=== PATIENT | female | born 1995 | race Caucasian/White ===

== ENCOUNTER 2022-11-29 22:20 | Outpatient (CLI) | payer OTHER, SELFPAY ==
[2022-11-29 22:47] VITALS: BP 139/71; PULSE 82
[2022-11-29 23:08] LABS: Amnisure Rom* Negative
[2022-11-29 23:28] VITALS: BP 123/69; PULSE 85
--- NOTE | 2022-11-29 23:33 | PC.OBNST ---
NST Note NST Note Start: 11/29/22 22:17 Freq: ONCE Status: Active Protocol: Document 11/29/22 23:31 [facility] (Rec: 11/29/22 23:32 [facility] [id number]) NST Note 1 Para (# of births) 0 EDC 12/06/22 Gestational Age In Weeks & Days 39 Weeks & 0 Days Patient Presented with Complaint(s) of Leaking fluid Reactive Yes Appropriate for Gestational Age Yes FADY Maurer RN Date 11/29/22 Reactive Yes Appropriate for Gestational Age Yes FADY Perez, RN Date 11/29/22 OB NST charge Yes Complete NST Note via Write Note Yes The provider's electronic signature indicates the NST is reactive/appropriate for gestational age. *Note to provider: If an addendum is required, open the patient's chart and click on the note under the Nurse/Allied Health tab.
== END 2022-11-29 23:40 | disposition home or self-care (01) ==
LOC: OB OUT 22:21 → OB 22:22
PROVIDERS: PCP Family Medicine; Visit Provider Family Medicine
DX: O47.1 False labor at or after 37 completed weeks of gestation (principal); Z3A.39 39 weeks gestation of pregnancy
CPT/HCPCS: 59025; 84112; 99213

== ENCOUNTER 2022-12-09 04:48 | Inpatient (IN) | payer OTHER, SELFPAY ==
[2022-12-09] VITALS (60 sets, daily range): BP systolic 106–151; BP diastolic 55–93; PULSE 61–118; RESP 16–18; TEMP 36.6–37; O2SAT 80–100; BMI 45.1
[2022-12-09] MEDS: LACTATED RINGERS 1000 ML 1,000 ML 999 ML IV ×3 (08:45→15:23)
[2022-12-09] MEDS: ROPIVACAINE 0.2% 100 ml 100 ML 12 MG EPIDURAL (09:31)
--- NOTE | 2022-12-09 09:40 | P.ANBPRC_ITS ---
[facility] Medical History (Updated 10/29/22 @ 11:19 by Yola Sheriff CRNA) BMI 38.0-38.9,adult ?Z68.38 - Body mass index [BMI] 38.0-38.9, adult (ICD-10) Social History What is your current living situation?: I presently have a place to live Problems where you live: no known problems In the past 12 months, utilities in danger of being shut off: no In the past 12 mos, have been you worried that your food would run out before you had money to buy more?: never true In the past 12 mos, the food you bought just didn't last and you didn't have money to buy more?: never true Smoking Status: Former smoker How often does anyone, including family, friends and others, physically hurt you : never How often does anyone, including family, friends and others, insult or talk down to you: never How often does anyone, including family, friends and others, threaten you with harm: never How often does anyone, including family, friends and others, scream or curse at you: never Meds Home Medications and Allergies Home Medications Medication Instructions Recorded Confirmed Type vitamin with calcium 1 tab PO DAILY 10/12/22 12/09/22 History no.72-iron 27 mg-folic acid 1 mg tablet ( Vitamins Plus Low Iron) Allergies Allergy/AdvReac Type Severity Reaction Status Date / Time No Known Drug Allergies Allergy Verified 12/09/22 04:31 Results Vital Signs Vital Signs: Last Vital Signs Temp 98.1 F 12/09/22 07:15 Pulse 86 12/09/22 09:39 Resp 16 12/09/22 07:15 BP 127/62 12/09/22 09:39 Pulse Ox 98 12/09/22 09:36 Weight: 126.824 kg Height: 167.64 cm Anesthesia Procedures Epidural Insertion Patient Location: OB Reason for Block: procedure for pain Patient Position: sitting Performed By: Gabriel Spencer Preanesthetic Checklist: IV checked, risks and benefits discussed, surgical consent, monitors and equipment checked, pre-op evaluation, timeout performed and anesthesia consent Prep: chlorhexidine gluconate Monitoring: blood pressure monitoring, continuous pulse oximetry and heart rate Approach: midline Vertebral Space: lumbar (1-5) Epidural Technique: RAMIRO saline Needle Type: Tuohy needle Injection Technique: continuous catheter Needle gauge: 17 Needle Length (cm): 10 cm Needle Insertion Depth (cm): 8 Catheter Gauge: 19 Catheter Type: multi-orifice Catheter at skin depth (cm): 13 Test Dose Result: negative and lidocaine 1.5% with epinephrine 1 to 200,000
[2022-12-09] MEDS: OXYTOCIN 30 unit/500 ML in NS 30 UNIT/500 ML BAG IVPB (10:41)
[2022-12-09 10:43] LABS: Basophils Percent Auto 0.2 % (0.0-3.0); Eosinophils Percent Auto 0.3 % (0.0-7.0); Hematocrit 34.9 % (33.0-51.0); Hemoglobin* 11.8 gm/dL (12.0-16.0); Immature Granulocytes Pct Auto 0.6 %; Lymphocytes Percent Auto 10.5 % (20-44); Mean Corpuscular HGB Conc 34 gm/dL (32-36); Mean Corpuscular Hemoglobin 28 pg (26-34); Mean Corpuscular Volume 83 fL (80-100); Monocytes Percent Auto 5.1 % (0.0-11.0); Neutrophils Percent Auto 83.3 % (42.0-72.0); Platelet Count* 224 K/uL (140-440); Red Blood Count 4.19 m/uL (4.00-5.20); White Blood Count* 12.65 K/uL (4.50-11.00)
[2022-12-09 10:45] LABS: Slide Review Reflex No
--- NOTE | 2022-12-09 13:49 | P.OBHP_ITS ---
OB - H&P: HPI Labor/Induction History of Present Illness Date Seen: 12/09/22 Chief Complaint: The patient is a 27 year old 1 para 0 at 40+3 weeks gestation by LMP and confirmed with 1st trimester US, who presents with regular contractions. Chief complaint: maternity : 1 Para: 0 Narrative: Irving Ross is a 27 year old at 40+3 weeks by LMP and confirmed with first trimester US here in active labor. Irving started alba last evening, however by 0230, these became stronger and more regular and she presented to labor in delivery at 4 cm dilated. Since then, she has received an epidural for pain control. Her contractions then spaced out between 7-9 minutes and pitocin was started. She had SROM of a small amount of clear fluid at 1327. complicated by obesity, has had level 2 US and has had weekly BPPs since 32 weeks, all have been reassuring. 34 week growth is 86%, 2903g. History of Present Dating criteria: based on LMP care: good care Ultrasounds: normal 1st trimester US and normal mid trimester US Medical complications: none Labs Blood type: 0 (-) negative Rubella: immune RPR/VDLR: nonreactive GBS status: negative HBsAG: negative Review of Systems Status of ROS: Reports: 6 or more systems reviewed and unremarkable except as noted in History and below Meds Home Medications and Allergies Home Medications Medication Instructions Recorded Confirmed Type vitamin with calcium 1 tab PO DAILY 10/12/22 12/09/22 History no.72-iron 27 mg-folic acid 1 mg tablet ( Vitamins Plus Low Iron) Allergies Allergy/AdvReac Type Severity Reaction Status Date / Time No Known Drug Allergies Allergy Verified 12/09/22 04:31 OB - H&P: Exam Physical Exam: Vital signs: Temp Pulse Resp BP Pulse Ox 98.6 F 68 16 110/59 L 99 12/09/22 13:17 12/09/22 13:46 12/09/22 09:42 12/09/22 13:46 12/09/22 09:56 Constitutional: Constitutional: no acute distress Routine HEENT Exam: Head: Present atraumatic and normal inspection Eye: Present EOMI and PERRL Routine Neck Exam: Neck: Present full ROM Detailed Neck Exam: Thyroids: Thyroid: Present normal Routine Respiratory Exam: Respiratory: Present CTA bilaterally Routine Cardiovascular Exam: Cardiovascular: RRR Comments: no murmur Detailed Labor and Delivery Exam: Patient Gravid: Yes Dilation (cm): 6 Effacement (%): 100 Cervix position: anterior Consistency: soft Contraction frequency (min): 4 Fetus (Single): Station: -2 Amniotic Membrane Status: SROM Amniotic Membrane Fluid Description: Clear Heart Rate Baseline: 135 Monitor Accelerations: Present Monitor Decelerations: None Suction Plate Roller Hand Variability: Moderate (6-25) Routine Extremities Exam: Comments: no swelling, redness Routine Skin Exam: Present intact and normal turgor Routine Neurological Exam: Present alert, oriented X3 and CN II-XII intact Routine Psychiatric Exam: Present normal affect OB - Results Labs Labs: Short CBC 12/09/22 Range/Units 10:35 WBC 12.65 H (4.50-11.00) K/uL Hgb 11.8 L (12.0-16.0) gm/dL Hct 34.9 (33.0-51.0) % Plt Count 224 (140-440) K/uL OB - Problem Based A/P Additional Plan (1) Term : Status: Acute (2) Active labor at term: Status: Acute Plan Patient is comfortable with epidural. She has had SROM and pitocin augmentation. Will continue current management. Anticipate . Delivery/Labor/Induction Plan Induction method: per pitocin protocol
[2022-12-09] MEDS: OXYTOCIN 30 unit/500 ML in NS 30 UNIT/500 ML BAG 300 UNIT IVPB (15:46)
--- NOTE | 2022-12-09 16:10 | W.PM.VAGDEL1 ---
Procedure Delivery date: 12/09/22 Procedure Done: Global Delivery augmentation: pitocin Delivery monitor: external FHT, external uterine and internal FHT Route of delivery: Laceration description: Vaginal - 2nd Degree Delivery repair: Vicryl Estimated blood loss (mL): 400 Anesthesia type: Epidural Narrative: The patient is a 27 year-old admitted on 12/09/2022 at 40 Weeks, 3 Days gestation for active labor.? Cervical exam on admission was 3-4 cm/90 % effaced/-2 station with membranes intact in vertex presentation.? Contractions were every 5-7 minutes.? heart rate demonstrated baseline 140 bpm with moderate variability, + accelerations, - decelerations; a category 1 tracing.? After epidural at 0935, contraction frequency slowed and pitocin was started. SROM occurred at 1328 with clear fluid. ? Labor Analgesia:? epidural ? Pitocin:? yes ? Labor onset:? 1328 ? Complete:? 1450 ? Pushing:? 1506 ? heart tones during second stage were category 2. ? At 1546 a viable male infant delivered in vertex OA presentation over intact perineum via spontaneous vaginal delivery.? was placed on maternal abdomen.? Cord was clamped and cut after a 30-60 second delay.? Nose and mouth were bulb suctioned.? weight pending.? 8 at 1 minute and 9 at 5 minutes.? Shoulder dystocia: no.? Nuchal cord: yes, reduced at perineum. ? Placenta delivered spontaneously and complete at 1548 with a 3 vessel cord. ? Mother and were stable after delivery. ? Lacerations:? 2nd degree vaginal with a briskly bleeding vein on the right side of the laceration. This was clamped, suture placed and then bleeding stopped, laceration repaired with 3-0 vicryl suture. ? Blood loss: 400 mL. Blood loss measurement type: QBL ? Sponge and needles counts are correct. Infant Infant Gender: Male presentation: vertex Placental Delivery Description: Spontaneous Cord Description: 3 Vessels and Nuchal Cord
[2022-12-09] MEDS: IBUPROFEN 600 MG TABLET PO (17:57)
[2022-12-09 20:20] LABS: Hematocrit 33.8 % (33.0-51.0); Hemoglobin* 11.5 gm/dL (12.0-16.0); Mean Corpuscular HGB Conc 34 gm/dL (32-36); Mean Corpuscular Hemoglobin 28 pg (26-34); Mean Corpuscular Volume 83 fL (80-100); Platelet Count* 217 K/uL (140-440); Red Blood Count 4.06 m/uL (4.00-5.20); White Blood Count* 19.04 K/uL (4.50-11.00)
[2022-12-09 20:23] LABS: Slide Review Reflex No
[2022-12-09 20:29] LABS: Aspartate Amino Transferase* 25 U/L (12-35); Blood Urea Nitrogen* 9 mg/dL (5-24); Creatinine* 0.5 mg/dL (0.5-1.5); Est. Creatinine Clearance* 155.42; Estimated Glomerular Filt Rate 130 ml/min
[2022-12-09 21:13] LABS: Alanine Aminotransferase* 35 U/L (4-35)
[2022-12-09] MEDS: ACETAMINOPHEN 500 MG TABLET 1000 MG PO (23:10)
[2022-12-10 03:56] VITALS: BP 123/80; PULSE 85; RESP 16; TEMP 36.8; O2SAT 98
[2022-12-10] MEDS: IBUPROFEN 600 MG TABLET PO ×2 (03:59→16:57)
[2022-12-10 07:17] LABS: Hemoglobin* 10.1 gm/dL (12.0-16.0)
[2022-12-10 08:00] VITALS: BP 117/79; PULSE 83; RESP 16; TEMP 36.7; O2SAT 97
--- NOTE | 2022-12-10 08:01 | PM.OBDSVD1 ---
DS: Providers Provider Date Seen: 12/10/22 Date of admission: 12/09/22 04:48 Primary care physician: Tonya Zurita MD Admitting Clinician: Tonya Zurita MD Attending Physician on discharge: Tonya Zurita MD Date of Discharge: 12/10/22 DS: Diagnosis Discharge Diagnosis (1) Vaginal delivery: Status: Acute Exam Const: Vital Signs, click to edit/add: Vital Signs - 24 hr 12/09/22 09:12 12/09/22 09:16 12/09/22 09:21 Temperature Pulse Rate 83 Pulse Rate [Pulse Oximeter] Respiratory Rate Blood Pressure 143/83 H Blood Pressure [Ri ght Arm] Pulse Oximetry 80 L 99 [facility] 12/09/22 09:24 12/09/22 09:26 12/09/22 09:28 Temperature Pulse Rate 91 82 99 Pulse Rate [Pulse Oximeter] Respiratory Rate Blood Pressure 149/90 H 137/84 140/78 H Blood Pressure [Ri ght Arm] Pulse Oximetry 98 [facility] 12/09/22 09:30 12/09/22 09:31 12/09/22 09:33 Temperature Pulse Rate 76 82 Pulse Rate [Pulse Oximeter] Respiratory Rate Blood Pressure 140/81 H 130/68 Blood Pressure [Ri ght Arm] Pulse Oximetry 99 [facility] 12/09/22 09:36 12/09/22 09:39 12/09/22 09:41 Temperature Pulse Rate 87 86 Pulse Rate [Pulse Oximeter] Respiratory Rate Blood Pressure 126/69 127/62 Blood Pressure [Ri ght Arm] Pulse Oximetry 98 99 [facility] 12/09/22 09:42 12/09/22 09:46 12/09/22 09:48 Temperature 98.4 F Pulse Rate 96 85 Pulse Rate [Pulse Oximeter] Respiratory Rate 16 Blood Pressure 114/74 122/74 Blood Pressure [Ri ght Arm] Pulse Oximetry 99 [facility] 12/09/22 09:51 12/09/22 09:56 12/09/22 10:06 Temperature Pulse Rate 90 Pulse Rate [Pulse Oximeter] Respiratory Rate Blood Pressure 122/63 Blood Pressure [Ri ght Arm] Pulse Oximetry 99 99 [facility] 12/09/22 10:15 12/09/22 10:21 12/09/22 10:36 Temperature Pulse Rate 78 78 77 Pulse Rate [Pulse Oximeter] Respiratory Rate Blood Pressure 113/55 L 121/65 111/66 Blood Pressure [Ri ght Arm] Pulse Oximetry [facility] 12/09/22 10:51 12/09/22 11:06 12/09/22 11:21 Temperature Pulse Rate 78 69 74 Pulse Rate [Pulse Oximeter] Respiratory Rate Blood Pressure 112/67 109/56 L 113/59 L Blood Pressure [Ri ght Arm] Pulse Oximetry [facility] 12/09/22 11:36 12/09/22 11:51 12/09/22 12:07 Temperature Pulse Rate 77 69 87 Pulse Rate [Pulse Oximeter] Respiratory Rate Blood Pressure 113/59 L 117/63 112/65 Blood Pressure [Ri ght Arm] Pulse Oximetry [facility] 12/09/22 12:22 12/09/22 12:37 12/09/22 12:51 Temperature Pulse Rate 80 81 86 Pulse Rate [Pulse Oximeter] Respiratory Rate Blood Pressure 107/63 114/68 117/69 Blood Pressure [Ri ght Arm] Pulse Oximetry [facility] 12/09/22 13:16 12/09/22 13:17 12/09/22 13:21 Temperature 98.6 F Pulse Rate 83 85 Pulse Rate [Pulse Oximeter] Respiratory Rate Blood Pressure 122/71 132/75 Blood Pressure [Ri ght Arm] Pulse Oximetry [facility] 12/09/22 13:36 12/09/22 13:46 12/09/22 13:51 Temperature Pulse Rate 82 68 76 Pulse Rate [Pulse Oximeter] Respiratory Rate Blood Pressure 128/57 L 110/59 L 106/57 L Blood Pressure [Ri ght Arm] Pulse Oximetry [facility] 12/09/22 14:07 12/09/22 14:21 12/09/22 14:37 Temperature Pulse Rate 61 69 84 Pulse Rate [Pulse Oximeter] Respiratory Rate Blood Pressure 111/58 L 117/58 L 124/77 Blood Pressure [Ri ght Arm] Pulse Oximetry Oxygen Delivery [facility] 12/09/22 14:51 12/09/22 15:02 12/09/22 15:08 Temperature Pulse Rate 88 85 Pulse Rate [Pulse Oximeter] Respiratory Rate Blood Pressure 124/74 135/78 Blood Pressure [Ri ght Arm] Pulse Oximetry 99 Oxygen Delivery [facility] 12/09/22 15:22 12/09/22 15:49 12/09/22 16:04 Temperature Pulse Rate 85 85 80 Pulse Rate [Pulse Oximeter] Respiratory Rate Blood Pressure 115/56 L 137/86 130/87 Blood Pressure [Ri ght Arm] Pulse Oximetry [facility] 12/09/22 16:19 12/09/22 16:34 12/09/22 16:49 Temperature Pulse Rate 80 80 81 Pulse Rate [Pulse Oximeter] Respiratory Rate Blood Pressure 142/83 H 144/80 H 143/71 H Blood Pressure [Ri ght Arm] Pulse Oximetry [facility] 12/09/22 17:04 12/09/22 17:19 12/09/22 17:34 Temperature Pulse Rate 85 78 90 Pulse Rate [Pulse Oximeter] Respiratory Rate Blood Pressure 142/71 H 149/85 H 151/88 H Blood Pressure [Ri ght Arm] Pulse Oximetry [facility] 12/09/22 17:49 12/09/22 17:58 12/09/22 19:32 Temperature Pulse Rate 88 87 94 Pulse Rate [Pulse Oximeter] Respiratory Rate Blood Pressure 140/93 H 142/90 H 132/71 Blood Pressure [Ri ght Arm] Pulse Oximetry [facility] 12/09/22 19:34 12/09/22 19:36 12/09/22 23:05 Temperature 98.6 F 98.4 F Pulse Rate Pulse Rate [Pulse Oximeter] 104 H 90 Respiratory Rate 16 16 Blood Pressure Blood Pressure [Ri ght Arm] 132/71 123/73 Pulse Oximetry 99 98 97 [facility] Air Room Air 12/10/22 03:56 Temperature 98.2 F Pulse Rate Pulse Rate [Pulse Oximeter] 85 Respiratory Rate 16 Blood Pressure Blood Pressure [Ri ght Arm] 123/80 Pulse Oximetry 98 Oxygen Delivery Me od Room Air Documenting provider has reviewed patient's vital signs: yes Common normals: no apparent distress General appearance: cooperative and comfortable Resp: Common normals: normal respiratory effort and clear to auscultation bilaterally Auscultation: clear to auscultation bilaterally Cardio: Common normals: regular rate and regular rhythm Rate: regular rate Rhythm: regular rhythm GI: Common normals: soft to palpation Palpation: soft : Other: uterus firm at umbilicus Extremity: Common normals: no pedal edema OB - DS: Summary Hospital Course Hospital Course: The patient is a 27 year old G 1 P 1 at 40+3 weeks gestation that was admitted to the Center on 12/09/22 for active labor. She had an uncomplicated vaginal delivery. She delivered a viable male . She is breast feeding. the patient has done well. Peripartum Data Infant delivery method: Vaginal Laceration description: Vaginal - 2nd Degree complications: none [place] Gender: Male Discharge Plan: Home Status at Discharge Functional status at discharge: independent ambulation Overall status at discharge: patient is progressing back to baseline Time Spent with Patient Time attestation: Total time spent providing and/or coordinating discharge services: Time spent: Less than 30 minutes Discharge Plan Discharge Disposition: Home, Self-Care Date of Admission: 12/09/22 04:48 Attending Provider on Discharge: Tonya Zurita Primary Care Provider: Tonya Zurita Condition: Stable Anticipated Discharge Date/Time: 12/10/22 16:04 Discharge Medications: Continued Vitamin Plus Low Iron 27 mg iron- 1 mg tablet 1 tab PO DAILY Discharge Orders: Discharge Order (Routine); Ordered 12/10/22 Ordered By: Tonya Zurita Patient Education: OB Vaginal/Breast Feeding Activity Level: Activity as Tolerated Activity Detail: Nothing per vagina x 6 weeks Discharge Diet: Regular Follow Up Appointments: Tonya Zurita MD [Primary Care Provider] - Forms: [facility] Info Instructions
[2022-12-10] MEDS: ACETAMINOPHEN 500 MG TABLET 1000 MG PO (08:20)
[2022-12-10] MEDS: DOCUSATE SODIUM 100 MG CAPSULE PO (08:20)
[2022-12-10 11:54] VITALS: BP 117/76; PULSE 86; RESP 16; TEMP 36.7; O2SAT 97
[2022-12-10 16:51] VITALS: BP 128/85; PULSE 94; RESP 16; TEMP 36.7; O2SAT 98
== END 2022-12-10 19:40 | disposition home or self-care (01) | DRG 807 ==
LOC: OB OUT 04:50 → OB 04:50
PROVIDERS: Admitting Provider Family Medicine; PCP Family Medicine; Visit Provider Family Medicine
DX: O70.1 Second degree perineal laceration during delivery (principal); Z37.0 Single live birth; Z3A.40 40 weeks gestation of pregnancy
CPT/HCPCS: 01967; 36415; 82565; 84450; 84460; 84520; 85018; 85025; 85027; 85461; 86850; 86900; 86901; A9270; J2371; J2791; J2795; J7120; S0020

== ENCOUNTER 2024-04-25 11:54 | Outpatient (CLI) | payer OTHER, SELFPAY ==
[2024-04-25] VITALS (13 sets, daily range): BP systolic 115–133; BP diastolic 65–78; PULSE 88–107; RESP 18; TEMP 36.4; O2SAT 81–96
[2024-04-25 12:52] LABS: Hemoglobin* 11.5 gm/dL (12.0-16.0); Mean Corpuscular HGB Conc 34 gm/dL (32-36); Mean Corpuscular Hemoglobin 28 pg (26-34); Mean Corpuscular Volume 83 fL (80-100); Platelet Count* 176 K/uL (140-440); Red Blood Count 4.11 m/uL (4.00-5.20); White Blood Count* 10.44 K/uL (4.50-11.00)
[2024-04-25 12:53] LABS: Slide Review Reflex No
[2024-04-25 13:07] LABS: Alanine Aminotransferase* 19 U/L (4-35); Aspartate Amino Transferase* 21 U/L (12-35); Blood Urea Nitrogen* 7 mg/dL (5-24); Creatinine* 0.4 mg/dL (0.5-1.5); Estimated Glomerular Filt Rate 136 ml/min
[2024-04-25 13:11] LABS: Creatinine Urine 119.2 mg/dL; Protein Creatinine Ratio Urine 0.16 (0-0.19); Total Protein Urine 19 mg/dL
--- NOTE | 2024-04-25 16:10 | PC.OBNST ---
NST Note NST Note Start: 04/25/24 12:07 Freq: ONCE Status: Active Protocol: Document 04/25/24 15:15 [facility] (Rec: 04/25/24 16:10 [facility] [id number]) NST Note 2 Para (# of births) 1 EDC 06/02/24 Gestational Age In Weeks & Days 34 Weeks & 4 Days Patient Presented with Complaint(s) of Other Other Complaints Patient had two high blood pressures at home - sent for further monitoring and labs. Reactive Yes FADY Griffin RN Date 04/25/24 Reactive Yes FADY Cabral RN Date 04/25/24 OB NST charge Yes Complete NST Note via Write Note Yes The provider's electronic signature indicates the NST is reactive/appropriate for gestational age. *Note to provider: If an addendum is required, open the patient's chart and click on the note under the Nurse/Allied Health tab.
--- NOTE | 2024-05-18 16:13 | W.PM.NSTNOTE ---
NST Note NST Note NST Note: NST Note NST Note Start: 04/25/24 12:07 Freq: ONCE Status: Discharge Protocol: Document 04/25/24 15:15 [facility] (Rec: 04/25/24 16:10 [facility] [id number]) NST Note 2 Para (# of births) 1 EDC 06/02/24 Gestational Age In Weeks & Days 34 Weeks & 4 Days Patient Presented with Complaint(s) of Other Other Complaints Patient had two high blood pressures at home - sent for further monitoring and labs. Reactive Yes FADY Griffin, RN Date 04/25/24 Reactive Yes FADY Cabral RN Date 04/25/24 OB NST charge Yes Complete NST Note via Write Note Yes Addendum: FHT: moderate variability, baseline 125 bpm, accels, no decels. Reactive tracing.
== END 2024-04-25 15:15 | disposition home or self-care (01) ==
LOC: OB OUT 11:54 → OB 11:55
PROVIDERS: PCP Family Medicine; Visit Provider Student in an Organized Health Care Education/Training Program
DX: O16.3 Unspecified maternal hypertension, third trimester (principal); Z3A.34 34 weeks gestation of pregnancy
CPT/HCPCS: 36415; 59025; 82565; 82570; 84156; 84450; 84460; 84520; 85027; G0463

== ENCOUNTER 2024-06-06 06:24 | Inpatient (IN) | payer OTHER, SELFPAY ==
[2024-06-06] VITALS (54 sets, daily range): BP systolic 82–140; BP diastolic 50–95; PULSE 46–117; RESP 15–18; TEMP 36.5–37.1; O2SAT 92–99; BMI 46.2
[2024-06-06 07:05] LABS: Basophils Absolute Auto 0.03 K/uL (0.00-0.30); Basophils Percent Auto 0.3 % (0.0-3.0); Eosinophils Absolute Auto 0.12 K/uL (0.00-0.50); Eosinophils Percent Auto 1.1 % (0.0-7.0); Hematocrit 36.8 % (33.0-51.0); Hemoglobin* 12.7 gm/dL (12.0-16.0); Immature Granulocytes Abs Auto 0.11 K/uL (0.00-0.30); Lymphocytes Absolute Auto 2.39 K/uL (0.90-2.90); Lymphocytes Percent Auto 22.7 % (20-44); Mean Corpuscular HGB Conc 35 gm/dL (32-36); Mean Corpuscular Hemoglobin 28 pg (26-34); Mean Corpuscular Volume 81 fL (80-100); Monocytes Percent Auto 5.3 % (0.0-11.0); Neutrophils Percent Auto 69.6 % (42.0-72.0); Platelet Count* 209 K/uL (140-440); RDW Coefficient of Variation % 13.3 % (11.5-15.5); Red Blood Count 4.52 m/uL (4.00-5.20); White Blood Count* 10.51 K/uL (4.50-11.00)
[2024-06-06 07:13] LABS: Slide Review Reflex No
[2024-06-06] MEDS: AMPICILLIN 2 GM in 0.9 % SODIUM CHLORIDE Mini-bag 100 ML IVPB (07:18)
[2024-06-06] MEDS: LACTATED RINGERS 1000 ML 1,000 ML 125 ML IV (07:19)
[2024-06-06] MEDS: OXYTOCIN 30 unit/500 ML in NS 30 UNIT/500 ML BAG IVPB (07:40)
[2024-06-06] MEDS: LACTATED RINGERS 1000 ML 1,000 ML 999 ML IV (10:39)
[2024-06-06] MEDS: ROPIVACAINE 0.2% 100 ml 100 ML 12 MG EPIDURAL (11:21)
[2024-06-06] MEDS: LIDOCAINE 2% (PF) 5 ML VIAL EPIDURAL (11:30)
[2024-06-06] MEDS: AMPICILLIN 1 GM in 0.9 % SODIUM CHLORIDE Mini-bag 100 ML IVPB (11:31)
--- NOTE | 2024-06-06 11:35 | PM.ANBPRC ---
[facility] Medical History (Updated 12/18/22 @ 00:00 by Background Misty) Active labor at term Term ?Z34.90 - Encounter for supervision of normal , unspecified, unspecified trimester (ICD-10) Vaginal bleeding in ?O46.90 - Antepartum hemorrhage, unspecified, unspecified trimester (ICD-10) Depression with anxiety ?F41.8 - Other specified anxiety disorders (ICD-10) Varicella ?B01.9 - Varicella without complication (ICD-10) BMI 38.0-38.9,adult ?Z68.38 - Body mass index [BMI] 38.0-38.9, adult (ICD-10) Surgical History (Updated 12/09/22 @ 14:08 by Tonya Zurita MD) History of appendectomy ?Z90.49 - Acquired absence of other specified parts of digestive tract (ICD-10) Social History What is your current living situation?: I presently have a place to live Problems where you live: no known problems In the past 12 months, utilities in danger of being shut off: no In past 12 months, lack of transportation kept you from medical appts, meetings, work, or getting things needed for daily living: no In the past 12 mos, have been you worried that your food would run out before you had money to buy more?: never true In the past 12 mos, the food you bought just didn't last and you didn't have money to buy more?: never true Smoking Status: Former smoker How often does anyone, including family, friends and others, physically hurt you: never How often does anyone, including family, friends and others, insult or talk down to you: never How often does anyone, including family, friends and others, threaten you with harm: never How often does anyone, including family, friends and others, scream or curse at you: never Meds Home Medications and Allergies Home Medications ?Medication ?Instructions ?Recorded ?Confirmed ?Type vitamin with calcium 1 tab PO DAILY 10/12/22 06/06/24 History no.72-iron 27 mg-folic acid 1 mg tablet ( Vitamins Plus Low Iron) Allergies Allergy/AdvReac Type Severity Reaction Status Date / Time No Known Drug Allergies Allergy Verified 06/06/24 08:00 Results Labs Labs: Laboratory Results - last 24 hr 06/06/24 06:55 WBC 10.51 RBC 4.52 Hgb 12.7 Hct 36.8 MCV 81 MCH 28 MCHC 35 RDW Coeff of Eliecer 13.3 Plt Count 209 Neut % (Auto) 69.6 Lymph % (Auto) 22.7 [place] % (Auto) 5.3 Eos % (Auto) 1.1 Baso % (Auto) 0.3 Neut # (Auto) 7.30 H Lymph # (Auto) 2.39 [place] # (Auto) 0.60 Eos # (Auto) 0.12 Baso # (Auto) 0.03 Abs Immat Gran (auto) 0.11 Imm/Tot Granulo (auto) 1.0 Blood Type O Negative Antibody Screen NEGATIVE Vital Signs Vital Signs: Last Vital Signs Temp 98 F 06/06/24 07:26 Pulse 94 06/06/24 11:34 Resp 17 06/06/24 07:26 BP 123/79 06/06/24 11:34 Pulse Ox 97 06/06/24 11:34 Weight: 130 kg Height: 167.64 cm Anesthesia Procedures Epidural Insertion Patient Location: OB Start Time: 11:00 Stop Time: 12:00 Start Date: 06/06/24 Stop Date: 06/06/24 Reason for Block: primary anesthetic Patient Position: sitting Performed By: Yola Dumont Preanesthetic Checklist: IV checked, risks and benefits discussed, monitors and equipment checked, pre-op evaluation, timeout performed and anesthesia consent Prep: chlorhexidine gluconate Monitoring: blood pressure monitoring, continuous pulse oximetry and heart rate Approach: midline Vertebral Space: lumbar (1-5) Epidural Technique: RAMIRO saline Needle Type: Tuohy needle Injection Technique: continuous catheter Needle gauge: 17 Needle Length (cm): 10 cm Needle Insertion Depth (cm): 8 Catheter Gauge: 19 Catheter Type: multi-orifice Catheter at skin depth (cm): 15 Test Dose Result: negative and lidocaine 1.5% with epinephrine 1 to 200,000
--- NOTE | 2024-06-06 11:41 | PM.OBHPLI ---
OB - H&P: HPI Labor/Induction History of Present Illness Date Seen: 06/06/24 Chief Complaint: The patient is a 29 year old 2 para 1 at 40+4 weeks gestation by 1st trimester US, who presents for induction for maternal obesity, post dates. Chief complaint: Maternity : 2 Para: 1 Narrative: Nati Ross is a 29 year old at 40+4 weeks here for term induction for maternal obesity and post dates. She has had an uncomplicated . Is having occasional moderate contractions on arrival, no LOF. baby has been active. She is GBS +, rH -, rubella immune. History of Present Dating criteria: based on 1st trimester US only care: good care Ultrasounds: normal 1st trimester US and normal mid trimester US Labs Blood type: 0 (-) negative Rubella: immune RPR/VDLR: nonreactive GBS status: positive HBsAG: negative Review of Systems Status of ROS: Reports: 6 or more systems reviewed and unremarkable except as noted in History and below Meds Home Medications and Allergies Home Medications ?Medication ?Instructions ?Recorded ?Confirmed ?Type vitamin with calcium 1 tab PO DAILY 10/12/22 06/06/24 History no.72-iron 27 mg-folic acid 1 mg tablet ( Vitamins Plus Low Iron) Allergies Allergy/AdvReac Type Severity Reaction Status Date / Time No Known Drug Allergies Allergy Verified 06/06/24 08:00 OB - H&P: Exam Physical Exam: Vital signs: Temp Pulse Resp BP Pulse Ox 98 F 99 17 82/50 L 99 06/06/24 07:26 06/06/24 11:40 06/06/24 07:26 06/06/24 11:40 06/06/24 11:39 Constitutional: Constitutional: no acute distress Routine HEENT Exam: Head: Present atraumatic Eye: Present conjunctival injection, EOMI and normal appearance ENT: Present mucous membranes moist and normal oropharynx Routine Neck Exam: Neck: Present full ROM Routine Respiratory Exam: Respiratory: Present CTA bilaterally Routine Cardiovascular Exam: Cardiovascular: RRR Routine Exam: Perineum Description: Normal Detailed Labor and Delivery Exam: Patient Gravid: Yes Dilation (cm): 5 Effacement (%): 80 Cervix position: anterior Consistency: soft Contraction frequency (min): 3 Contraction intensity: Moderate Fetus (Single): Station: -1 Amniotic Membrane Status: AROM Amniotic Membrane Fluid Description: Clear Heart Rate Baseline: 145 Monitor Accelerations: Present Monitor Decelerations: Variable Senior Care Variability: Moderate (6-25) Routine Extremities Exam: Extremities: Present full ROM Routine Neurological Exam: Present alert and oriented X3 Routine Psychiatric Exam: Present normal affect and normal thought process OB - Results Labs Labs: Short CBC 06/06/24 Range/Units 06:55 WBC 10.51 (4.50-11.00) K/uL Hgb 12.7 (12.0-16.0) gm/dL Hct 36.8 (33.0-51.0) % Plt Count 209 (140-440) K/uL OB - Problem Based A/P Additional Plan (1) BMI 38.0-38.9,adult: Status: Acute (2) Term : Status: Acute Plan Induction started this morning with pitocin per protocol, now with AROM of clear fluid. Abx for +GBS, adequate treatment prior to AROM. Epidural for labor analgesia. Anticipate Delivery/Labor/Induction Plan Plan: induction Induction method: per pitocin protocol
--- NOTE | 2024-06-06 13:37 | P.OBPN_ITS ---
Subjective Date Seen: 06/06/24 Narrative: Nati is a at 40+1 here for IOL. She is comfortable. She is feeling contractions, but very mild and no pelvic pressure. Continuing to make cervical change with pitocin. 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 Anticipate .
--- NOTE | 2024-06-06 15:12 | W.PM.VAGDEL1 ---
Procedure Delivery date: 06/06/24 Procedure Done: Global Events: Labor Induction Intrapartal Events: Labor Induction Delivery augmentation: rupture of membranes Delivery monitor: external FHT and external uterine Route of delivery: Laceration description: Perineal - 2nd Degree Delivery repair: Vicryl Estimated blood loss (mL): 150 Anesthesia type: Epidural Disposition: floor Narrative: The patient is a 29 year-old admitted on 06/06/24 at 40 Weeks, 4 Days gestation for IOL for maternal obesity and post dates.? Cervical exam on admission was 3 cm/50 % effaced/-1 station with membranes intact in vertex presentation.? Contractions were occasional.? heart rate demonstrated baseline 145 bpm with moderate variability, + accelerations, - decelerations; a category 1 tracing.?Pitocin was started per protocol at 0740 and patient requested an epidural at 1115. AROM occurred at 1133 with clear fluid. ? Labor Analgesia:? epidural ? Pitocin:? yes ? Labor onset:? 1133 ? Complete:? 1359 ? Pushing:? 1402 ? heart tones during second stage were category 2. ? At 1447 a viable female delivered in vertex OA presentation over intact perineum via spontaneous vaginal delivery.? was placed on maternal abdomen.? Cord was clamped and cut after a 30-60 second delay.? Nose and mouth were bulb suctioned.? Infant weight 10 pounds 0 oz.? 7 at 1 minute and 9 at 5 minutes.? Shoulder dystocia: no.? Nuchal cord: no. ? Placenta delivered spontaneously and complete at 1450 with a 3 vessel cord. ? Mother and were stable after delivery. ? Lacerations:? 2nd degree, repaired with 3-0 vicryl suture. ? Blood loss: 150 mL. Blood loss measurement type: QBL ? Sponge and needles counts are correct.
[2024-06-06] MEDS: IBUPROFEN 600 MG TABLET PO (16:58)
[2024-06-06] MEDS: ACETAMINOPHEN 500 MG TABLET 1000 MG PO (20:17)
[2024-06-07 01:19] VITALS: BP 127/79; PULSE 82; RESP 16; TEMP 36.9; O2SAT 97
[2024-06-07] MEDS: IBUPROFEN 600 MG TABLET PO ×2 (02:33→10:46)
[2024-06-07 05:50] VITALS: BP 129/82; PULSE 78; RESP 16; TEMP 36.8; O2SAT 97
[2024-06-07 06:11] LABS: Hemoglobin* 11.4 gm/dL (12.0-16.0)
--- NOTE | 2024-06-07 07:47 | PM.OBDSVD1 ---
DS: Providers Provider Time Seen by Provider: 07:00 Date Seen: 06/07/24 Date of admission: 06/06/24 06:24 Primary care physician: Tonya Zurita MD Admitting Clinician: Tonya Zurita MD Attending Physician on discharge: Roxana Padilla MD Date of Discharge: 06/07/24 DS: Diagnosis Discharge Diagnosis (1) Vaginal delivery: Status: Acute Exam Const: Vital Signs, click to edit/add: Vital Signs - 24 hr 06/06/24 10:54 06/06/24 10:58 06/06/24 10:59 Temperature Pulse Rate 94 Pulse Rate [Pulse Oximeter] Respiratory Rate Blood Pressure 137/90 H Blood Pressure [Le ft Arm] Pulse Oximetry 97 [facility] 06[facility] 11:04 06/06/24 11:09 06/06/24 11:10 Temperature Pulse Rate 97 Pulse Rate [Pulse Oximeter] Respiratory Rate Blood Pressure 139/90 H Blood Pressure [Le ft Arm] Pulse Oximetry 97 97 [facility] 06/06/24 11:14 06/06/24 11:16 06/06/24 11:18 Temperature Pulse Rate 100 100 109 H Pulse Rate [Pulse Oximeter] Respiratory Rate Blood Pressure 136/94 H 138/95 H 129/80 Blood Pressure [Le ft Arm] Pulse Oximetry 98 [facility] 06/06/24 11:19 06/06/24 11:20 06/06/24 11:21 Temperature Pulse Rate 108 H 117 H Pulse Rate [Pulse Oximeter] Respiratory Rate Blood Pressure 132/85 118/70 Blood Pressure [Le ft Arm] Pulse Oximetry 97 [facility] 06/06/24 11:24 06/06/24 11:26 06/06/24 11:28 Temperature Pulse Rate 88 93 80 Pulse Rate [Pulse Oximeter] Respiratory Rate Blood Pressure 108/65 116/81 121/75 Blood Pressure [Le ft Arm] Pulse Oximetry 99 93 [facility] 06/06/24 11:29 06/06/24 11:30 06/06/24 11:32 Temperature Pulse Rate 104 H 98 Pulse Rate [Pulse Oximeter] Respiratory Rate Blood Pressure 121/76 120/68 Blood Pressure [Le ft Arm] Pulse Oximetry 95 [facility] 06/06/24 11:34 06/06/24 11:39 06/06/24 11:40 Temperature Pulse Rate 94 99 Pulse Rate [Pulse Oximeter] Respiratory Rate Blood Pressure 123/79 82/50 L Blood Pressure [Le ft Arm] Pulse Oximetry 97 99 [facility] 06/06/24 11:41 06/06/24 11:41 06/06/24 11:41 Temperature Pulse Rate 100 76 Pulse Rate [Pulse Oximeter] Respiratory Rate Blood Pressure 85/53 L 110/63 Blood Pressure [Le ft Arm] Pulse Oximetry [facility] 06/06/24 11:44 06/06/24 11:45 06/06/24 11:49 Temperature Pulse Rate 81 Pulse Rate [Pulse Oximeter] Respiratory Rate Blood Pressure 114/71 Blood Pressure [Le ft Arm] Pulse Oximetry 95 97 [facility] 06/06/24 11:50 06/06/24 11:52 06/06/24 11:55 Temperature Pulse Rate 87 46 L Pulse Rate [Pulse Oximeter] Respiratory Rate Blood Pressure 119/75 123/79 Blood Pressure [Le ft Arm] Pulse Oximetry 92 [facility] 06/06/24 12:00 06/06/24 12:05 06/06/24 12:05 Temperature 98.7 F Pulse Rate 92 98 Pulse Rate [Pulse Oximeter] Respiratory Rate 15 Blood Pressure 115/70 117/73 Blood Pressure [Le ft Arm] Pulse Oximetry [facility] 06/06/24 12:10 06/06/24 12:32 06/06/24 12:46 Temperature Pulse Rate 95 98 96 Pulse Rate [Pulse Oximeter] Respiratory Rate Blood Pressure 114/76 111/76 123/77 Blood Pressure [Le ft Arm] Pulse Oximetry [facility] 06/06/24 13:01 06/06/24 13:15 06/06/24 13:31 Temperature Pulse Rate 96 100 101 H Pulse Rate [Pulse Oximeter] Respiratory Rate Blood Pressure 128/80 126/81 116/71 Blood Pressure [Le ft Arm] Pulse Oximetry [facility] 06/06/24 13:39 06/06/24 13:45 06/06/24 14:01 Temperature 97.7 F Pulse Rate 108 H 105 H Pulse Rate [Pulse Oximeter] Respiratory Rate 18 Blood Pressure 109/61 140/63 H Blood Pressure [Le ft Arm] Pulse Oximetry [facility] 06/06/24 14:16 06/06/24 14:45 06/06/24 14:58 Temperature Pulse Rate 100 101 H 100 Pulse Rate [Pulse Oximeter] Respiratory Rate Blood Pressure 126/64 124/59 L 111/56 L Blood Pressure [Le ft Arm] Pulse Oximetry [facility] 06/06/24 15:00 06/06/24 15:15 06/06/24 15:30 Temperature Pulse Rate 48 L 113 H 90 Pulse Rate [Pulse Oximeter] Respiratory Rate Blood Pressure 107/58 L 117/57 L 121/56 L Blood Pressure [Le ft Arm] Pulse Oximetry [facility] 06/06/24 15:45 06/06/24 16:00 06/06/24 16:15 Temperature Pulse Rate 99 90 96 Pulse Rate [Pulse Oximeter] Respiratory Rate Blood Pressure 120/82 115/77 117/81 Blood Pressure [Le ft Arm] Pulse Oximetry [facility] 06/06/24 16:30 06/06/24 16:45 06/06/24 17:00 Temperature Pulse Rate 102 H 108 H 110 H Pulse Rate [Pulse Oximeter] Respiratory Rate Blood Pressure 114/63 120/70 125/67 Blood Pressure [Le ft Arm] Pulse Oximetry [facility] 06/06/24 17:24 06/06/24 22:09 06/07/24 01:19 Temperature 98.1 F 98.2 F 98.4 F Pulse Rate Pulse Rate [Pulse Oximeter] 80 74 82 Respiratory Rate 16 18 16 Blood Pressure Blood Pressure [Le ft Arm] 127/80 125/85 127/79 Pulse Oximetry 99 98 97 Oxygen Delivery [facility] Room Air Room Air Room Air 06/07/24 05:50 Temperature 98.2 F Pulse Rate Pulse Rate [Pulse Oximeter] 78 Respiratory Rate 16 Blood Pressure Blood Pressure [Le ft Arm] 129/82 Pulse Oximetry 97 [facility] Documenting provider has reviewed patient's vital signs: yes Common normals: no apparent distress General appearance: cooperative Orientation/consciousness: Yes awake, Yes oriented to person, Yes oriented to place and Yes oriented to time HENMT: Common normals: normocephalic Head and scalp: normocephalic Eye: Common normals: EOMs intact bilaterally Neck & C-Spine: Common normals: full ROM Chest: Common normals: inspection of chest normal Resp: Common normals: normal respiratory effort and clear to auscultation bilaterally Auscultation: clear to auscultation bilaterally GI: Common normals: soft to palpation Palpation: soft : Uterus: U/U Other: fundus firm, nontender Neuro: Sensorium/orientation: awake, oriented to person, oriented to place and oriented to time OB - DS: Summary Hospital Course Hospital Course: The patient is a 29 year old G 2 P 2 at 40w4 weeks gestation that was admitted to the [facility] on 06/06/24 for elective IOL (postdates, obesity). She had an uncomplicated vaginal delivery. She delivered a viable female infant. She is breast feeding. the patient has done well. Peripartum Data delivery method: Vaginal Laceration description: Perineal - 2nd Degree complications: none [place] Gender: Female Discharge Plan: Home Status at Discharge Functional status at discharge: independent ambulation Overall status at discharge: patient is back to baseline Time Spent with Patient Time attestation: Total time spent providing and/or coordinating discharge services: Time spent: Less than 30 minutes Discharge Plan Discharge Disposition: Home, Self-Care Date of Admission: 06/06/24 06:24 Attending Provider on Discharge: Roxana Padilla Primary Care Provider: Tonya Zurita Condition: Improved Anticipated Discharge Date/Time: 06/07/24 15:00 Discharge Medications: Continued Vitamin Plus Low Iron 27 mg iron- 1 mg tablet 1 tab PO DAILY Discharge Orders: Discharge Order (Routine); Ordered 06/07/24 Ordered By: Roxana Padilla Patient Education: OB Vaginal/Breast Feeding Activity Level: Activity as Tolerated Activity Detail: 6 weeks pelvic rest, nothing in the vagina Discharge Diet: Regular and High Fiber Follow Up Appointments: Tonya Zurita MD [Primary Care Provider] - Forms: [facility] Info Instructions Discharge Comments: please follow up for [address] Zurita
[2024-06-07 08:55] VITALS: BP 122/81; PULSE 92; RESP 16; TEMP 36.8; O2SAT 97
[2024-06-07] MEDS: ACETAMINOPHEN 500 MG TABLET 1000 MG PO (09:03)
[2024-06-07] MEDS: DOCUSATE SODIUM 100 MG CAPSULE PO (09:03)
[2024-06-07 11:49] VITALS: BP 127/84; PULSE 80; RESP 16; TEMP 36.8; O2SAT 97
[2024-06-08 01:45] LABS: Rapid Plasma Reagin (RPR) Non Reactive (Non Reactive)
== END 2024-06-07 17:00 | disposition home or self-care (01) | DRG 807 ==
PROVIDERS: Admitting Provider Family Medicine; PCP Family Medicine; Visit Provider Family Medicine
DX: O48.0 Post-term pregnancy (principal); Z37.0 Single live birth; Z3A.40 40 weeks gestation of pregnancy; O99.214 Obesity complicating childbirth; E66.9 Obesity, unspecified; O70.1 Second degree perineal laceration during delivery; O76 Abnormality in fetal heart rate and rhythm complicating labor and delivery; O99.824 Streptococcus B carrier state complicating childbirth; O26.893 Other specified pregnancy related conditions, third trimester; Z67.41 Type O blood, Rh negative
CPT/HCPCS: 01967; 36415; 36430; 85018; 85025; 85461; 86592; 86850; 86900; 86901; A9270; J0290; J2371; J2791; J2795; J7120